=== PATIENT | female | born 1980 ===

== ENCOUNTER → 2023-09-19 | Outpatient (REF) | payer OTHER | LOC: M LAB REF 16:22 | PROVIDERS: ATTEND Physician Assistant Medical | DX: R19.7 Diarrhea, unspecified (principal) ==

== ENCOUNTER → 2024-08-30 | Outpatient (REF) | payer OTHER | LOC: M LAB REF 21:23 | PROVIDERS: ATTEND Physician Assistant | DX: J02.9 Acute pharyngitis, unspecified (principal) ==